=== PATIENT | male | born 1980 | race Hispanic/Latino ===

== ENCOUNTER 2018-11-08 16:50 | Emergency (ER) | payer SELFPAY | END 2018-11-08 17:53 | disposition home or self-care (01) | LOC: ERS 16:50 | DX: K02.9 Dental caries, unspecified (principal); F17.210 Nicotine dependence, cigarettes, uncomplicated | CPT/HCPCS: 99283 ==

== ENCOUNTER 2019-03-18 15:44 | Observation (INO) | payer SELFPAY ==
[~2019-03-18 15:44] MED LIST: Iopamidol 370 76% 100 ML VIAL ONE
--- NOTE | 2019-03-18 17:05 | RAD ---
EXAM: Single view of the chest HISTORY: Chest pain COMPARISON: 10/17/2012 FINDINGS: Single view of the chest shows a normal sized cardiomediastinal silhouette. Dextrocardia i s present. The patient is status post sternotomy. There is no evidence of consolidation, mass, or pleural effusion. The bones are unremarkable. IMPRESSION: Dextrocardia without evidence of acute cardiopulmonary disease
[2019-03-18 19:05] LABS: #Basophils 0.1 thou/uL (0.0-0.2); #Eosinphils 0.1 thou/uL (0.0-0.7); #Lymphocytes 3.1 thou/uL (1.20-3.40); #Monocytes 0.7 thou/uL (0.11-0.59); #Neutrophils 5.4 thou/uL (1.40-6.50); %Basophils 1.5 % (0.0-1.0); %Eosinophils 1.2 % (0.0-10.0); %Monocytes 7.3 % (0.0-10.0); %Neutrophils 57.1 % (42.0-75.0); Hemoglobin 16.8 g/dL (14.0-18.0); Mean Corpuscular HGB CONC 34.3 g/dL (32.0-36.0); Mean Corpuscular Volume 90.5 fL (78.0-98.0); Mean Platelet Volume 8.9 fL (7.4-10.4); Platelet Count 246 thou/uL (130-400); RBC Distribution Width 11.8 % (11.5-14.5); Red Blood Cell (RBC) Count 5.42 mill/uL (4.70-6.10); White Blood Cell (WBC) Count 9.4 thou/uL (4.8-10.8)
[2019-03-18] MEDS ORDERED: Nitroglycerin 2% Ointment 1 INCH/1 GM Packet ONE (19:13)
[2019-03-18 19:20] LABS: ALT (SGPT) 53 U/L (8-55); AST (SGOT) 28 U/L (5-34); Albumin 4.6 g/dL (3.5-5.0); Alkaline Phosphatase 182 U/L (40-110); Anion Gap 18 mmol/L (10-20); BUN (Urea Nitrogen) 14 mg/dL (8.9-20.6); Bilirubin, Total 0.5 mg/dL (0.2-1.2); Calc. Creatinine Clearance 0 mL/min (70-130); Carbon Dioxide 20 mmol/L (22-29); Chloride 99 mmol/L (98-107); Estimated GFR-MDRD 70; Globulin 3.1 g/dL (2.4-3.5); Glucose 477 mg/dL (70-105); Potassium 4.6 mmol/L (3.5-5.1); Protein, Total 7.7 g/dL (6.0-8.3); Sodium 132 mmol/L (136-145)
[2019-03-18] MEDS ORDERED: Aspirin 325 MG TAB ONE (20:28)
--- NOTE | 2019-03-18 21:08 | CT ---
EXAM: CTA of the chest and abdomen HISTORY: Left neck and shoulder pain for one month. The left upper extremity paresthesias and burning for 2 days COMPARISON: None TECHNIQUE: Multiple contiguous axial images were obtained a CTA of the chest and abdomen with contras t per aortic dissection protocol. Sagittal and coronal 3-D MIP reformats were performed. FINDINGS: HEART: Dextrocardia associated with situs inversus. PULMONARY ARTERIES: Normal in caliber without filling defects to suggest pulmonary emboli. MEDIASTINUM: No hilar or mediastinal lymphadenopathy. LUNGS: No focal infiltrates or masses. PLEURAL SPACE: No pleural effusion or pneumothorax. CHEST AND ABDOMINAL WALL SOFT TISSUES: Unremarkable Situs inversus is seen. LIVER: Unremarkable. GALLBLADDER: Unremarkable. KIDNEYS: Unremarkable. SPLEEN: Unremarkable. PANCREAS: Unremarkable. BOWEL: Unremarkable. RETROPERITONEUM: No lymphadenopathy BONES: Degenerative changes in the spine. ASCENDING THORACIC AORTA: Normal caliber without evidence of dissection or aneurysmal dilatation. DESCENDING THORACIC AORTA: Normal caliber without evidence of dissection or aneurysmal dilatation. ABDOMINAL AORTA: Normal caliber without evidence of dissection or aneurysmal dilatation. CELIAC TRUNK: Patent SMA: Patent OSCAR: Patent RENAL ARTERIES: Multiple bilateral renal arteries without significant atherosclerotic disease IMPRESSION: 1. No evidence of thoracic or abdominal aortic aneurysm or dissection 2. Situs inversus
[2019-03-18] MEDS ORDERED: Senokot S 8.6-50 MG TAB PO PRN (21:31)
[2019-03-18] MEDS ORDERED: Acetaminophen 325 MG TAB PO PRN (21:31)
[2019-03-18] MEDS ORDERED: Dextrose 50% Abboject 50 ML SYRINGE SLOW IVP PRN (21:38)
[2019-03-18] MEDS ORDERED: Dextrose 5% in Water 1,000 ML IV PRN (21:38)
[2019-03-18] MEDS ORDERED: HumaLOG 300 UNITS/3 ML VIAL SC PRN ×2 (21:38)
[2019-03-18] MEDS ORDERED: Sodium Chloride 0.9% 1,000 ML IV SCH (21:45)
[2019-03-18] MEDS ORDERED: Nicotine 14 MG PATCH TD SCH (22:00)
[2019-03-18] MEDS ORDERED: hydrALAZINE 20 MG/ML VIAL SLOW IVP PRN (22:12)
[2019-03-18 22:39] VITALS: BMI 23.5
[2019-03-18 22:53] LABS: Troponin I 0.019 ng/mL (< 0.028)
[2019-03-18] MEDS ORDERED: Ondansetron ODT 4 MG TAB SL PRN (22:53)
[2019-03-18] MEDS ORDERED: Ondansetron PF 4 MG/2 ML Vial IVP PRN (22:53)
--- NOTE | 2019-03-18 23:28 | HP ---
CHIEF COMPLAINT: Left arm pain. HISTORY OF PRESENT ILLNESS: Mr. Hodges is a 38-year-old man, who reported to the emergency room today for evaluation of left arm pain x1 month. Reports that it started in his neck a months ago and radiates down his left arm. Reports that yesterday it started to radiate down the left side of his chest. 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 Denies any injury or trauma. Reports that Motrin makes it feel bit better but short-lived and hence denies trying anything more than that. Sees Dr. Theodore, but not on a regular basis. Reports that he takes metformin and was told to take long-acting insulin with that, but reports that it drops his blood sugar too low, makes him to feel terrible, and he quit taking it. EKG shows marked bradycardia at 44 beats per minute, possible anterolateral ischemia, and dextrocardia. Initial troponin was negative. CT dissection protocol was also done while in the emergency room, and this was negative for any acute findings. He was admitted for risk stratification. REVIEW OF SYSTEMS: Reports left-sided neck pain lateral that radiates down left arm. Yesterday, it started to radiate down left side of chest. Denies any specific chest pain, palpitations, nausea, diaphoresis. 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 The patient reports he is positive for Hep C. PAST SURGICAL HISTORY: Cardiac surgery to fix the vessel transposition. PSYCHIATRIC HISTORY: None. SOCIAL HISTORY: Lives at home with his family. Denies drug use. Smokes a pack of cigarettes a day. ALLERGIES: NONE. CURRENT MEDICATIONS: Per the ER, 1. Metformin 500 mg p.o. twice a day. 2. Long-acting insulin, it is not sure which one 20 units subcu once a day. PHYSICAL EXAMINATION: VITAL SIGNS: Blood pressure 139/80, pulse is 49, respirations are 19, PO2 sats are 98, O2 sats are 96% on room air. CONSTITUTIONAL: The patient is alert and oriented to person, place, and time. HEENT: Head is atraumatic and normocephalic. Eyes; eyelids are normal to inspection. Pupils are equal, round, and reactive to light. ENT, mouth exam is normal. Mucous membranes are moist. NECK: Normal range of motion. Trachea is midline. There is tenderness to palpation to the left lateral side that radiates down to the trapezius. RESPIRATORY/CHEST: Breath sounds are clear. Chest movement is symmetrical. ABDOMEN: Nontender. Bowel sounds are heard. BACK: Normal range of motion. No CVA tenderness. EXTREMITIES: Upper extremity, motor strength is normal. Range of motion diminished due to pain. Radial pulses are normal. Lower extremity, normal range of motion. Motor strength is normal. Pedal pulses are normal. No edema is noted. NEURO: The patient is oriented to person, place, and time. Speech is normal. SKIN: Warm, dry, normal in color. PLAN/ASSESSMENT: 1. Pain that starts in his neck and radiates down to his chest due to dextrocardia and transposition of the vessels. We will trend troponins. Order a stress test in the a.m. The fact that pain starts in his neck, and there is tenderness to the touch. Further testing of his neck may be warranted if the stress test is normal. We will order a UA and drug screen. We will check lipids and TSH. 2. Neck pain. See above. We will also order OT evaluation. 3. Diabetes mellitus, poorly controlled. The patient reports he takes metformin 500 mg b.i.d. Current blood sugars 477. Order some fluids, sliding scale insulin. 4. Hypertension in the ER. The patient reports that he was once diagnosed with that, but was taken off his medications. We will add p.r.n. medications, if it consistently remains high, may start patient on the low dose of hypertensive medications to continue as an outpatient. 5. Deep venous thrombosis and gastrointestinal prophylaxis have been started. 6. Smoking cessation counseling has been given. 7. Hospital course is dependent on clinical findings. Job ID: [id number]
[2019-03-19 01:32] LABS: Troponin I Less than 0.010 ng/mL (< 0.028)
[2019-03-19] MEDS ORDERED: Ketorolac Tromethamine 30 MG/ML VIAL IVP SCH (02:00)
[2019-03-19 02:26] LABS: Bacteria/HPF None Seen HPF (None Seen); Bilirubin Negative (Negative); Blood, Urine Negative (Negative); Clarity Clear (Clear); Glucose, Urine (Dipstick) Greater than 1000 mg/dL (Negative); Leukocyte Negative Leu/uL (Negative); Nitrite Negative (Negative); Protein, Urine (Dipstick) 30 mg/dL (Neg-Trace); RBC/HPF 0-3 HPF (0-3); Squamous Epithelial 0-3 HPF (0-3); Urobilinogen Normal mg/dL (Less than 2); WBC/HPF 0-3 HPF (0-3)
[2019-03-19 02:30] LABS: Urine Culture Reflex No No
[2019-03-19 02:43] LABS: Amphetamine Not Detected (NotDetected); Barbiturates Screen Not Detected (NotDetected); Benzodiazepine Screen Not Detected (NotDetected); Cocaine Metabolite Screen Not Detected (NotDetected); Medtox Control Line Valid? VALID (VALID); Medtox Reader # READER 1; Methadone Not Detected (NotDetected); Methamphetamine Not Detected (NotDetected); Opiate Screen Not Detected (NotDetected); Oxycodone Screen Not Detected (NotDetected); Phencyclidine (PCP) Not Detected (NotDetected); THC/Cannabinoid Screen Detected (NotDetected); Tricyclic Screen Not Detected (NotDetected)
[2019-03-19] MEDS ORDERED: traMADol HCl 50 MG TAB PO SCH (05:00)
[2019-03-19 06:17] LABS: #Basophils 0.1 thou/uL (0.0-0.2); #Eosinphils 0.2 thou/uL (0.0-0.7); #Lymphocytes 3.6 thou/uL (1.20-3.40); #Monocytes 0.7 thou/uL (0.11-0.59); #Neutrophils 4.2 thou/uL (1.40-6.50); %Basophils 1.1 % (0.0-1.0); %Lymphocytes 41.2 % (21.0-51.0); %Monocytes 7.6 % (0.0-10.0); %Neutrophils 48.1 % (42.0-75.0); Hemoglobin 15.8 g/dL (14.0-18.0); Mean Corpuscular Hemoglobin 30.1 pg (27.0-31.0); Mean Corpuscular Volume 91.3 fL (78.0-98.0); Mean Platelet Volume 8.7 fL (7.4-10.4); Platelet Count 230 thou/uL (130-400); RBC Distribution Width 11.8 % (11.5-14.5); Red Blood Cell (RBC) Count 5.24 mill/uL (4.70-6.10); White Blood Cell (WBC) Count 8.6 thou/uL (4.8-10.8)
[2019-03-19 06:46] LABS: Anion Gap 13 mmol/L (10-20); BUN (Urea Nitrogen) 17 mg/dL (8.9-20.6); Calc. Creatinine Clearance 92 mL/min (70-130); Calcium 9.4 mg/dL (7.8-10.44); Carbon Dioxide 26 mmol/L (22-29); Cardiac Risk 4.8 (Less than 4.5); Chloride 103 mmol/L (98-107); Cholesterol 257 mg/dl (< 200 Desired); Estimated GFR-MDRD 83; Glucose 268 mg/dL (70-105); HDL Cholesterol 53 mg/dL (>60 Neg Risk); LDL Cholesterol, Calculated 177 mg/dL; Potassium 4.5 mmol/L (3.5-5.1); Sodium 137 mmol/L (136-145); Triglycerides 136 mg/dL (Less than 150)
[2019-03-19] MEDS ORDERED: Ketorolac Tromethamine 30 MG/ML VIAL IVP PRN (07:45)
[2019-03-19] MEDS ORDERED: Enoxaparin Sodium 40 MG/0.4 ML SYRINGE SC SCH (09:00)
[2019-03-19] MEDS ORDERED: Famotidine 20 MG TAB PO SCH (09:00)
--- NOTE | 2019-03-19 09:41 | PDOC.HOSPP ---
- Subjective Encounter Date: 03/19/19 Encounter Time: 09:39 Subjective: pain L neck into L arm, with paresthesia - Objective Vital Signs & Weight: Vital Signs (12 hours) Temp Pulse Resp BP BP Pulse Ox 03/19/19 07:46 97.6 F 64 14 179/89 H 96 03/19/19 05:02 97.6 F 42 L 18 159/78 H 98 03/18/19 22:50 50 L 169/93 H 03/18/19 22:35 97.8 F 51 L 20 191/99 H 98 Weight Weight 145 lb 15.136 oz I&O: 03/18/19 03/19/19 03/20/19 06:59 06:59 06:59 Intake Total 350 995 Balance 350 995 Result Diagrams: 03/19/19 05:29 03/19/19 05:29 Additional Labs: Accuchecks 03/18/19 22:28 POC Glucose 306 H Hospitalist ROS - Medication Medications: Active Medications Generic Name Dose Route Start Last Admin Trade Name Freq PRN Reason Stop Dose Admin Acetaminophen 650 mg 03/18/19 21:31 03/18/19 23:21 Tylenol PO 650 mg Q4H PRN Administration Headache/Fever/Mild Pain (1-3) Insulin Human Lispro 0 units 03/18/19 21:38 03/18/19 23:22 Humalog SC 4 unit .BEDTIME SLIDING SC PRN Administration Bedtime Correctional Scale Nicotine 14 mg 03/18/19 22:00 03/18/19 23:22 Nicoderm Patch TD Not Given Q24HR DEEPTHI - Exam Neck: no JVD Heart: RRR, no murmur Respiratory: CTAB Gastrointestinal: soft Extremities: no edema Hosp A/P (1) Cervical radiculopathy at C7 Code(s): M54.12 - RADICULOPATHY, CERVICAL REGION Status: Acute (2) DM type 2 (diabetes mellitus, type 2) Status: Chronic Qualifiers: Diabetes mellitus long-term insulin use: without long-term use Diabetes mellitus complication status: without complication Qualified Code(s): E11.9 - Type 2 diabetes mellitus without complications (3) HTN (hypertension) Code(s): I10 - ESSENTIAL (PRIMARY) HYPERTENSION Status: Chronic Qualifiers: Hypertension type: essential hypertension Qualified Code(s): I10 - Essential (primary) hypertension (4) Situs inversus Code(s): Q89.3 - SITUS INVERSUS Status: Chronic - Plan MRI c spine
[2019-03-19] MEDS ORDERED: traMADol HCl 50 MG TAB PO PRN (11:00)
--- NOTE | 2019-03-19 11:07 | MRI ---
EXAM: Cervical spine MRI Without contrast. HISTORY: Left cervical radiculopathy COMPARISON: None. FINDINGS: Multiplanar multisequence MRI examination of the cervical spine is performed. Very severe motion artifact. The patient refused any additional imaging. Generalized disc desiccation change. No significant malalignment. No evidence for significant abnormal marrow signal. No evidence for spinal cord mass or abnormal signal within the spinal cord. Visualized lower brain and neck soft tissues show no significant acute process. C2-C3 level: No significant central canal, lateral recess, or foraminal stenosis. C3-C4 level: No significant central canal, lateral recess, or foraminal stenosis. C4-C5 level: Mild focal central protrusion with minimal indention of the ventral thecal sac C5-C6 level: Prominent disc osteophytosis with a large central disc osteophyte complex resulting in s ignificant central canal stenosis and bilateral recess stenosis and some foraminal stenosis worse on the left side. C6-C7 level: No significant central canal, lateral recess, or foraminal stenosis. C7-T1 level: No significant central canal, lateral recess, or foraminal stenosis. IMPRESSION: Very severely limited study because of patient motion and patient would not allow any additional imag ing. Large central disc osteophyte at C5-C6 with thecal sac compression and ventral lateral recess stenosis and primarily left foraminal stenosis. If there is consideration for surgical evaluation a follow-up outpatient examination when the patient can be premedicated might be a consideration
--- NOTE | 2019-03-19 15:28 | DIS ---
DATE OF ADMISSION: 03/18/2019 DATE OF DISCHARGE: 03/19/2019 PRIMARY CARE PROVIDER: Laura Smart DNP, NEWS VIDEO EDITOR- DISPOSITION: Discharged home. FINAL DIAGNOSES: 1. C7 cervical radiculopathy. 2. Diabetes mellitus, type 2. 3. Hypertension. 4. Situs inversus. DISCHARGE MEDICINES: New; 1. Medrol Dosepak start today. 2. Tylenol No. 3 one or two tablets every 6 hours p.r.n. pain. 3. Metformin 500 mg p.o. b.i.d. ALLERGIES: NO KNOWN DRUG ALLERGIES. DIET: Diabetic. PENDING AT TIME OF DISCHARGE: Nothing. CODE STATUS: Full. HOSPITAL COURSE: The patient admitted to the hospital with a diagnosis of left arm pain, rule out IA. The patient has situs inversus. His initial laboratory, CBCs unremarkable. He did have an elevated blood sugar of 268. His chemistries were unremarkable. Cardiac enzymes were normal. On history and physical exam, his symptoms and exam were consistent with a left C7 cervical radiculopathy. He had weakness in the left triceps. MRI confirmed neuroforaminal stenosis. He is being discharged to follow up with his PCP in 7 days. If this does not resolve rapidly, he will need to be seen by Neurosurgery. His MRI was limited by movement artifact. He may possibly need pain medicines and/or sedation if he requires a second one. Job ID: [id number]
[2019-03-19 16:29] VITALS: BP 142/87; TEMP 97.4
[2019-03-19] MEDS ORDERED: FLU VACC QS2019-20(6MOS UP)/PF 60 MCG/0.5 ML SYRINGE IM ONE (21:00)
== END 2019-03-19 16:47 | disposition home or self-care (01) ==
LOC: ERS 15:44 → 2SW 21:57
PROVIDERS: ADMIT Internal Medicine; ATTEND Internal Medicine
DX: M54.12 Radiculopathy, cervical region (principal); R07.9 Chest pain, unspecified; M48.02 Spinal stenosis, cervical region; M25.78 Osteophyte, vertebrae; E11.9 Type 2 diabetes mellitus without complications; F17.210 Nicotine dependence, cigarettes, uncomplicated; I10 Essential (primary) hypertension; Q89.3 Situs inversus; Z79.4 Long term (current) use of insulin; Z98.890 Other specified postprocedural states
CPT/HCPCS: 36415; 36416; 71045; 71275; 72141; 72191; 74175; 80048; 80053; 80061; 80306; 81001; 84443; 84484; 85025; 90471; 90686; 90732; 93005; 96361; 96374; G0008; G0009; G0378; J1885; Q9967

== ENCOUNTER 2021-02-09 05:12 | Emergency (ER) | payer SELFPAY ==
[2021-02-09 08:45] LABS: #Lymphocytes 1.5 thou/uL (1.20-3.40); #Monocytes 0.7 thou/uL (0.11-0.59); #Neutrophils 11.5 thou/uL (1.40-6.50); %Basophils 0.1 % (0.0-1.0); %Eosinophils 0.3 % (0.0-10.0); %Lymphocytes 10.7 % (21.0-51.0); %Monocytes 4.8 % (0.0-10.0); %Neutrophils 84.1 % (42.0-75.0); Hemoglobin 17.1 g/dL (14.0-18.0); Mean Corpuscular HGB CONC 32.1 g/dL (32.0-36.0); Mean Corpuscular Hemoglobin 29.2 pg (27.0-31.0); Mean Platelet Volume 9.1 fL (7.4-10.4); Platelet Count 337 thou/uL (130-400); RBC Distribution Width 11.3 % (11.5-14.5); Red Blood Cell (RBC) Count 5.85 mill/uL (4.70-6.10); White Blood Cell (WBC) Count 13.7 thou/uL (4.8-10.8)
[2021-02-09 09:00] LABS: ALT (SGPT) 36 U/L (8-55); AST (SGOT) 30 U/L (5-34); Albumin 3.8 g/dL (3.5-5.0); Alkaline Phosphatase 305 U/L (40-110); Anion Gap 18 mmol/L (10-20); BUN (Urea Nitrogen) 17 mg/dL (8.9-20.6); Bilirubin, Total 0.6 mg/dL (0.2-1.2); Calc. Creatinine Clearance 0 mL/min (70-130); Carbon Dioxide 23 mmol/L (22-29); Chloride 92 mmol/L (98-107); Globulin 3.6 g/dL (2.4-3.5); Potassium 4.8 mmol/L (3.5-5.1); Protein, Total 7.4 g/dL (6.0-8.3); Sodium 128 mmol/L (136-145)
[2021-02-09 09:18] LABS: Glucose 780 mg/dL (70-105)
[2021-02-09] MEDS ORDERED: Magnesium 2 GM/50 ML BAG (IN WATER) ONE (10:15)
[2021-02-09] MEDS ORDERED: Metoclopramide HCl 10 MG/2 ML VIAL ONE (10:15)
[2021-02-09] MEDS ORDERED: diphenhydrAMINE 50 MG/ML VIAL ONE (10:15)
[2021-02-09 10:37] LABS: Actual Bicarbonate (HCO3v) 26 mEq/L (22-28); Chloride (VBG) 92 mmol/L (98-106); Hemoglobin (Hb) 16.8 g/dL (13.2-17.3); Potassium (VBG) 4.19 mmol/L (3.70-5.30); Sodium 130.6 mmol/L (133-146); pH (venous) 7.42 (7.32-7.43)
[2021-02-09] MEDS ORDERED: Acetaminophen 500 MG TAB ONE (12:39)
[2021-02-09] MEDS ORDERED: methylPREDNISolone Sod Succ/PF 125 MG/2 ML VIAL ONE (12:40)
[2021-02-09] MEDS ORDERED: Ketorolac Tromethamine 30 MG/ML VIAL ONE (12:40)
[2021-02-09] MEDS ORDERED: Insulin Regular 300 UNITS/3 ML VIAL ONE (12:40)
== END 2021-02-09 14:57 | disposition home or self-care (01) ==
LOC: ERS 05:12
DX: R51.9 Headache, unspecified (principal); E11.65 Type 2 diabetes mellitus with hyperglycemia; F17.210 Nicotine dependence, cigarettes, uncomplicated; I10 Essential (primary) hypertension
CPT/HCPCS: 36415; 36416; 70450; 80053; 82010; 82805; 85025; 93005; 96365; 96366; 96368; 96375; J1200; J1815; J1885; J2765; J2930; J3475

== ENCOUNTER 2023-07-04 08:36 | Inpatient (IN) | payer OTHER ==
[2023-07-04 09:15] LABS: #Basophils 0.1 thou/uL (0.0-0.2); #Monocytes 0.7 thou/uL (0.11-0.59); #Neutrophils 6.9 thou/uL (1.40-6.50); %Basophils 0.7 % (0.0-1.0); %Eosinophils 0.5 % (0.0-10.0); %Monocytes 7.8 % (0.0-10.0); %Neutrophils 77.7 % (42.0-75.0); Hematocrit 44.7 % (42.0-52.0); Hemoglobin 14.5 g/dL (14.0-18.0); Mean Corpuscular HGB CONC 32.4 g/dL (32.0-36.0); Mean Corpuscular Hemoglobin 29.1 pg (27.0-31.0); Mean Corpuscular Volume 89.8 fl (78.0-98.0); Mean Platelet Volume 10.8 fL (7.4-10.4); Platelet Count 281 10x3/uL (130-400); RBC Distribution Width 12.2 % (11.5-14.5); Red Blood Cell (RBC) Count 4.98 mill/uL (4.70-6.10); White Blood Cell (WBC) Count 8.9 10x3/uL (4.8-10.8)
[2023-07-04 09:33] LABS: ALT (SGPT) 59 U/L (8-55); AST (SGOT) 39 U/L (5-34); Albumin 3.8 g/dL (3.5-5.0); Alkaline Phosphatase 361 U/L (40-110); Anion Gap 16 mmol/L (10-20); BUN (Urea Nitrogen) 23 mg/dL (8.9-20.6); Bilirubin, Total 1.1 mg/dL (0.2-1.2); CK (CPK) 209 U/L (30-200); Calc. Creatinine Clearance 0 mL/min (70-130); Calcium 9.3 mg/dL (7.8-10.44); Carbon Dioxide 24 mmol/L (22-29); Chloride 95 mmol/L (98-107); Estimated GFR 63; Globulin 4.2 g/dL (2.4-3.5); Potassium 4.9 mmol/L (3.5-5.1); Sodium 130 mmol/L (136-145)
[2023-07-04 09:36] LABS: Troponin I 0.062 ng/mL (< 0.028)
[2023-07-04 09:38] LABS: Critical Call Chemistry NUR.OR15 @ 0937; Glucose 525 mg/dL (70-105)
[2023-07-04] MEDS ORDERED: Acetaminophen 325 MG TAB PO PRN (10:12)
[2023-07-04] MEDS ORDERED: Ondansetron ODT 4 MG TAB PO PRN (10:12)
[2023-07-04] MEDS ORDERED: Ondansetron PF 4 MG/2 ML Vial IVP PRN (10:12)
[2023-07-04] MEDS ORDERED: Acetaminophen 650 MG Suppository PR PRN (10:12)
[2023-07-04] MEDS ORDERED: Insulin Regular 300 UNITS/3 ML VIAL SC PRN ×2 (10:41)
[2023-07-04] MEDS ORDERED: Glucagon 1 MG/ML KIT IM PRN (10:41)
[2023-07-04] MEDS ORDERED: Dextrose 5% in Water 1,000 ML IV PRN (10:41)
[2023-07-04] MEDS ORDERED: Dextrose 50% Abboject 50 ML SYRINGE SLOW IVP PRN (10:41)
[2023-07-04 11:13] LABS: Bacteria/HPF None Seen HPF (None Seen); Bilirubin Negative (Negative); Blood, Urine Trace (Negative); CAUTI Indications for Culture Dysuria,urgency,freq; Clarity Clear (Clear); Glucose, Urine (Dipstick) Greater than 1000 mg/dL (Negative); Ketone, Urine Trace mg/dL (Negative); Leukocyte Negative Leu/uL (Negative); Nitrite Negative (Negative); Protein, Urine (Dipstick) 50 mg/dL (Neg-Trace); RBC/HPF 0-3 HPF (0-3); Specific Gravity, Urine 1.032 (1.002-1.036); Squamous Epithelial 0-3 HPF (0-3); Urobilinogen Normal mg/dL (Less than 2); WBC/HPF 0-3 HPF (0-3)
[2023-07-04 11:15] LABS: Urine Culture Reflex No No
[2023-07-04] MEDS ORDERED: VANCOMYCIN IVPB PRN (11:17)
[2023-07-04] MEDS: Insulin Glargine 30 UNITS/0.3 ML VIAL SC SCH ×2 (11:52→20:00)
[2023-07-04] MEDS: Vancomycin (BATCH) 1.25 GM in Premix 1 BAG IVPB SCH (12:13)
[2023-07-04 13:09] VITALS: BP 135/85
[2023-07-04] MEDS: Furosemide 100 MG (10 mL) VIAL SLOW IVP SCH (15:43)
[2023-07-04 18:57] VITALS: BMI 24.7
[2023-07-04] MEDS: Famotidine 20 MG TAB PO SCH (20:01)
[2023-07-04] MEDS ORDERED: Vancomycin 1 GM in Sodium Chloride 0.9% 250 ML 250 ML IVPB SCH (21:00)
[2023-07-04 21:34] VITALS: TEMP 97.8
[2023-07-05] MEDS ORDERED: Enoxaparin 40 MG (0.4 mL) SYRINGE SC SCH (09:00)
== END 2023-07-04 21:20 | disposition short-term general hospital (02) | DRG 291 ==
LOC: ERS 08:36 → ERHOLD 10:20 → IMCU/EMU 15:43
PROVIDERS: ADMIT Internal Medicine; ATTEND Physician Assistant
PROC: 5A09357 Assistance with Respiratory Ventilation, Less than 24 Consecutive Hours, Continuous Positive Airway Pressure (ICD-10-PCS; principal; 2023-07-04)
DX: I11.0 Hypertensive heart disease with heart failure (principal); I50.23 Acute on chronic systolic (congestive) heart failure; J96.01 Acute respiratory failure with hypoxia; L03.115 Cellulitis of right lower limb; Z79.4 Long term (current) use of insulin; F17.210 Nicotine dependence, cigarettes, uncomplicated; E11.42 Type 2 diabetes mellitus with diabetic polyneuropathy; R74.01 Elevation of levels of liver transaminase levels; E11.65 Type 2 diabetes mellitus with hyperglycemia; I42.9 Cardiomyopathy, unspecified; F19.10 Other psychoactive substance abuse, uncomplicated
CPT/HCPCS: 36415; 36416; 71045; 80053; 81001; 82550; 83880; 84484; 85025; 87040; 93005; 94660; 96374; 96375; J1815; J1940; J3370

== ENCOUNTER 2024-05-09 13:51 | Emergency (ER) | payer OTHER ==
[2024-05-09 14:48] LABS: Hematocrit 40.4 % (42.0-52.0); Hemoglobin 13.5 g/dL (14.0-18.0); Mean Corpuscular HGB CONC 33.4 g/dL (32.0-36.0); Mean Corpuscular Hemoglobin 29.4 pg (27.0-31.0); Mean Platelet Volume 10.2 fL (7.4-10.4); Platelet Count 345 10x3/uL (130-400); RBC Distribution Width 12.4 % (11.5-14.5); Red Blood Cell (RBC) Count 4.59 mill/uL (4.70-6.10)
[2024-05-09 15:07] LABS: ALT (SGPT) 15 U/L (8-55); AST (SGOT) 14 U/L (5-34); Albumin 2.1 g/dL (3.5-5.0); Alkaline Phosphatase 313 U/L (40-110); Anion Gap 22 mmol/L (10-20); BUN (Urea Nitrogen) 15 mg/dL (8.9-20.6); Bilirubin, Total 0.5 mg/dL (0.2-1.2); Calc. Creatinine Clearance 0 mL/min (70-130); Calcium 8.7 mg/dL (7.8-10.44); Carbon Dioxide 20 mmol/L (22-29); Chloride 93 mmol/L (98-107); Estimated GFR 103; Globulin 5.2 g/dL (2.4-3.5); Glucose 441 mg/dL (70-105); Potassium 4.6 mmol/L (3.5-5.1); Protein, Total 7.3 g/dL (6.0-8.3); Sodium 130 mmol/L (136-145)
[2024-05-09 15:17] LABS: Prothrombin Time 12.6 sec (12.0-14.7)
[2024-05-09 15:18] LABS: PTT 29.2 sec (22.9-36.1)
[2024-05-09 15:22] LABS: Anisocytosis SLIGHT = 6-15 cells HPF (0-5); Band 8 % (5-11); Burr Cells MODERATE= 6-15 cells HPF (0-1); Lymphocytes 4 % (21-51); Macrocytosis SLIGHT = 6-15 cells HPF (0-5); Microcytosis SLIGHT = 6-15 cells HPF (0-5); Monocytes 3 % (0-10); Neutrophil 84 % (42-75); Platelet Adequacy Comment Platelets Normal; Poikilocytosis SLIGHT = 6-15 cells HPF (0-5); Polychromasia SLIGHT = 2-3 cells HPF (0-2)
[2024-05-09] MEDS ORDERED: Vancomycin (BATCH) 1.5 GM in Premix 1 BAG IVPB SCH (17:15)
[2024-05-09] MEDS ORDERED: Cefepime 2 GM VIAL ONE (18:14)
[2024-05-09] MEDS ORDERED: Sodium Chloride 0.9% 100 ML ONE (18:15)
[2024-05-09] MEDS ORDERED: Insulin Regular, Human 100 UNIT/ML 10 ML VIAL ONE (18:15)
[2024-05-09] MEDS ORDERED: Morphine 2 MG/ML VIAL ONE (20:20)
== END 2024-05-10 04:54 | disposition short-term general hospital (02) ==
LOC: ERS 13:51
DX: E11.621 Type 2 diabetes mellitus with foot ulcer (principal); L97.529 Non-pressure chronic ulcer of other part of left foot with unspecified severity; F17.210 Nicotine dependence, cigarettes, uncomplicated; Z79.4 Long term (current) use of insulin
CPT/HCPCS: 36415; 36416; 80053; 83605; 85025; 85610; 85730; 87040; 87077; 87149; 93005; 96365; 96375; J0692; J1815; J2272; J3370

== ENCOUNTER 2024-05-27 19:36 | Inpatient (IN) | payer OTHER ==
[2024-05-27 20:09] LABS: #Basophils 0.04 10x3/uL (0.0-0.2); #Eosinophils Less than 0.03 10x3/uL (0.0-0.7); %Basophils 0.3 % (0.0-1.0); %Lymphocytes 8.3 % (21.0-51.0); %Monocytes 12.5 % (0.0-10.0); %Neutrophils 78.5 % (42.0-75.0); Hematocrit 23.2 % (42.0-52.0); Hemoglobin 7.5 g/dL (14.0-18.0); Mean Corpuscular HGB CONC 32.3 g/dL (32.0-36.0); Mean Corpuscular Volume 89.6 fL (78.0-98.0); Mean Platelet Volume 9.7 fL (7.4-10.4); Platelet Count 237 10x3/uL (130-400); RBC Distribution Width 12.5 % (11.5-14.5); Red Blood Cell (RBC) Count 2.59 mill/uL (4.70-6.10)
[2024-05-27 20:22] LABS: Actual Bicarbonate (HCO3v) 17.6 mEq/L (22-28); Analyzer IN Cardio ER; Base Excess -7.6 mEq/L (-2.0 to +3.0); Calcium, Ionized (venous) 1.08 mmol/L (1.16-1.32); Chloride (VBG) 102 mmol/L (98-106); Hematocrit-VBG 18 % (42.0-52.0); Potassium (VBG) 4.77 mmol/L (3.70-5.30); Sodium 140 mmol/L (133-146); pH (venous) 7.329 (7.32-7.43)
[2024-05-27 20:28] LABS: Acetaminophen Less than 10 mcg/mL (Less than 10); Alcohol Less than 10.0 mg/dL (Less than 10); Lipase 25 U/L (8-78); Magnesium 1.9 mg/dL (1.6-2.6); Salicylate Less than 8.0 mg/dL (Less than 8.0)
[2024-05-27 20:30] LABS: Troponin I 0.057 ng/mL (< 0.028)
[2024-05-27 20:31] LABS: ALT (SGPT) 39 U/L (8-55); AST (SGOT) 47 U/L (5-34); Albumin 2.6 g/dL (3.5-5.0); Alkaline Phosphatase 459 U/L (40-110); Anion Gap 28 mmol/L (10-20); BUN (Urea Nitrogen) 35 mg/dL (8.9-20.6); Bilirubin, Total 0.5 mg/dL (0.2-1.2); CK (CPK) 290 U/L (30-200); Calc. Creatinine Clearance 0 mL/min (70-130); Calcium 8.7 mg/dL (7.8-10.44); Carbon Dioxide 16 mmol/L (22-29); Chloride 103 mmol/L (98-107); Estimated GFR 51; Glucose 236 mg/dL (70-105); Potassium 5.1 mmol/L (3.5-5.1); Protein, Total 7.6 g/dL (6.0-8.3); Sodium 142 mmol/L (136-145)
[2024-05-27] MEDS ORDERED: KETAMINE 100 MG/ML (5ML VIAL) ONE (23:31)
[2024-05-27] MEDS ORDERED: Rocuronium Bromide 10 MG/ML (10ML VIAL) ONE ×2 (23:32)
[2024-05-27 23:50] LABS: Analyzer IN Cardio ER; Base Excess (BEa) -11.6 mEq/L (-2.0 to +3.0); CO2 Tension 25.3 mmHg (35.0-45.0); Calcium, Ionized (arterial) 1.16 mmol/L (1.12-1.30); Carboxyhemoglobin (COHb) 1.3 gm% (0.0-3.0); Hematocrit-ABG 21 % (42.0-52.0); Hemoglobin (Hb) 7.1 g/dL (14.0-18.0); O2 Tension (PaO2), arterial 259.9 mmHg (80.0-100.0); Potassium - ABG Lab 4.78 mmol/L (3.70-5.30); pH, Arterial 7.333 (7.35-7.45)
[2024-05-27 23:52] LABS: ALV-art Gradient 421.475 mmHg (0-20); Actual Bicarbonate (HCO3a) 13.1 mEq/L (22-28); Puncture Site Right Radial artery
[2024-05-28 00:09] LABS: Lactic Acid 12.88 mmol/L (0.5-2.2)
[2024-05-28 00:16] LABS: Bacteria/HPF None Seen HPF (None Seen); Bilirubin Negative (Negative); Blood, Urine Negative (Negative); CAUTI Indications for Culture Alt mental st,lethar; Clarity Clear (Clear); Glucose, Urine (Dipstick) Greater than 1000 mg/dL (Negative); Ketone, Urine Negative (Negative); Leukocyte Negative Leu/uL (Negative); Nitrite Negative (Negative); Protein, Urine (Dipstick) 70 mg/dL (Neg-Trace); RBC/HPF 0-3 HPF (0-3); Specific Gravity, Urine 1.027 (1.002-1.036); Squamous Epithelial 0-3 HPF (0-3); Urobilinogen Normal mg/dL (Less than 2); WBC/HPF 0-3 HPF (0-3); pH, Urine 5.5 (5.0-9.0)
[2024-05-28 00:22] LABS: Urine Culture Reflex No No
[2024-05-28] MEDS ORDERED: Sodium Bicarb 50 MEQ/50 ML Abboject 8.4% SYRINGE ONE ×2 (00:23→00:54)
[2024-05-28 00:29] LABS: Amphetamine Detected (NotDetected); Barbiturates Screen Not Detected (NotDetected); Benzodiazepine Screen Not Detected (NotDetected); Cocaine Metabolite Screen Not Detected (NotDetected); Methadone Not Detected (NotDetected); Methamphetamine Detected (NotDetected); Opiate Screen Not Detected (NotDetected); Oxycodone Screen Not Detected (NotDetected); Phencyclidine (PCP) Not Detected (NotDetected); THC/Cannabinoid Screen Not Detected (NotDetected); Tricyclic Screen Not Detected (NotDetected)
[2024-05-28] MEDS ORDERED: Acetaminophen 325 MG TAB PER TUBE PRN (00:43)
[2024-05-28] MEDS ORDERED: Ondansetron PF 4 MG/2 ML Vial IVP PRN (00:43)
[2024-05-28] MEDS ORDERED: Insulin Lispro 100 UNIT/ML 10 ML VIAL SC PRN (01:01)
[2024-05-28] MEDS ORDERED: Glucagon 1 MG/ML KIT IM PRN (01:01)
[2024-05-28] MEDS ORDERED: Dextrose 5% in Water 1,000 ML IV PRN (01:01)
[2024-05-28] MEDS ORDERED: Propofol 1,000 MG/100 ML VIAL IV ONE (01:57)
[2024-05-28] MEDS: Vancomycin 1.5 GRAM/300 ML BAG 1.5 GM in Premix 1 BAG IVPB SCH (03:14)
[2024-05-28] MEDS: Albumin 25% 25 GM (100 mL) BOT IVPB SCH (03:35)
[2024-05-28] MEDS: Pantoprazole 40 MG VIAL IVP SCH ×2 (03:53→09:38)
[2024-05-28 04:19] VITALS: BMI 19.6
[2024-05-28] MEDS: Sodium Bicarbonate 150 MEQ in Sterile Water 1,000 ML IV SCH (04:30)
[2024-05-28 04:33] LABS: #Basophils 0.03 10x3/uL (0.0-0.2); #Eosinophils Less than 0.03 10x3/uL (0.0-0.7); %Basophils 0.3 % (0.0-1.0); %Eosinophils 0.1 % (0.0-10.0); %Lymphocytes 9.5 % (21.0-51.0); %Monocytes 11.2 % (0.0-10.0); %Neutrophils 78.3 % (42.0-75.0); Hematocrit 19.9 % (42.0-52.0); Hemoglobin 6.7 g/dL (14.0-18.0); Mean Corpuscular HGB CONC 33.7 g/dL (32.0-36.0); Mean Corpuscular Hemoglobin 29.1 pg (27.0-31.0); Mean Corpuscular Volume 86.5 fL (78.0-98.0); Mean Platelet Volume 10.3 fL (7.4-10.4); Platelet Count 230 10x3/uL (130-400); RBC Distribution Width 12.5 % (11.5-14.5)
[2024-05-28 05:05] LABS: INR-International Normal Ratio 1.4; PTT 31.2 sec (22.9-36.1); Prothrombin Time 17.6 sec (12.0-14.7)
[2024-05-28 05:11] LABS: Iron 168 ug/dL (65-175); Iron Binding Capacity, Total 186 mcg/dL (261-462)
[2024-05-28 05:12] LABS: ALT (SGPT) 139 U/L (8-55); AST (SGOT) 219 U/L (5-34); Albumin 2.2 g/dL (3.5-5.0); Alkaline Phosphatase 409 U/L (40-110); Anion Gap 21 mmol/L (10-20); BUN (Urea Nitrogen) 39 mg/dL (8.9-20.6); Bilirubin, Total 0.4 mg/dL (0.2-1.2); Calc. Creatinine Clearance 48 mL/min (70-130); Calcium 8.3 mg/dL (7.8-10.44); Carbon Dioxide 19 mmol/L (22-29); Chloride 106 mmol/L (98-107); Estimated GFR 55; Globulin 4.6 g/dL (2.4-3.5); Glucose 261 mg/dL (70-105); Iron 169 ug/dL (65-175); Iron Binding Capacity, Total 189 mcg/dL (261-462); Magnesium 1.8 mg/dL (1.6-2.6); Potassium 4.2 mmol/L (3.5-5.1); Protein, Total 6.8 g/dL (6.0-8.3); Sodium 142 mmol/L (136-145)
[2024-05-28 05:14] LABS: CRP,High Sensitivity (Inhouse) 3.63 mg/dL (< or = 0.5)
[2024-05-28] MEDS ORDERED: DISCONTINUE PREVIOUS NARCOTIC PAIN MEDICATIONS AND BENZODIAZEPINES FS SCH (05:15)
[2024-05-28] MEDS ORDERED: Propofol BOLUS 1,000 MG/100 ML VIAL IV PRN (05:15)
[2024-05-28] MEDS ORDERED: Fentanyl BOLUS 250 ML IVPB PRN (05:15)
[2024-05-28] MEDS ORDERED: Morphine 2 MG/ML VIAL SLOW IVP PRN (05:15)
[2024-05-28 05:20] LABS: Lactic Acid 5.45 mmol/L (0.5-2.2); Troponin I 0.461 ng/mL (< 0.028)
[2024-05-28] MEDS: Ventilator Sedation Protocol 1 EACH FS ONE (06:28)
[2024-05-28] MEDS ORDERED: Pantoprazole 40 MG VIAL IVP SCH (09:00)
[2024-05-28] MEDS: Cefepime 1 GM in Sodium Chloride 0.9% 100 ML IVPB SCH (09:38)
[2024-05-28] MEDS: Insulin Glargine 30 UNITS/0.3 ML VIAL SC SCH (10:54)
[2024-05-28] MEDS: Insulin Lispro 100 UNIT/ML 10 ML VIAL SC PRN (10:55)
[2024-05-28] MEDS: Octreotide Acetate 1,250 MCG in Sodium Chloride 0.9% 250 ML 250 ML IVPB SCH (12:08)
[2024-05-28 12:43] LABS: Hemoglobin 8.6 g/dL (14.0-18.0)
[2024-05-28] MEDS: Propofol 1,000 MG/100 ML VIAL IV PRN (13:21)
[2024-05-28] MEDS: VANCOMYCIN 1.25 GM/250 ML BAG 1.25 GM in Premix 1 BAG IVPB SCH (15:00)
[2024-05-28] MEDS: Dextrose 50% Abboject 50 ML SYRINGE SLOW IVP PRN (22:18)
[2024-05-28 23:34] LABS: Anion Gap 13 mmol/L (10-20); BUN (Urea Nitrogen) 38 mg/dL (8.9-20.6); Calc. Creatinine Clearance 48 mL/min (70-130); Calcium 7.8 mg/dL (7.8-10.44); Carbon Dioxide 24 mmol/L (22-29); Chloride 109 mmol/L (98-107); Estimated GFR 55; Glucose 131 mg/dL (70-105); Potassium 2.8 mmol/L (3.5-5.1); Sodium 143 mmol/L (136-145)
[2024-05-28] MEDS: Fentanyl CADD 100 ML IV SCH (23:57)
[2024-05-29] MEDS: Potassium Bicarbonate/Cit Ac 20 MEQ TAB PER TUBE SCH (00:28)
[2024-05-29 05:36] LABS: #Basophils 0.07 10x3/uL (0.0-0.2); %Basophils 0.4 % (0.0-1.0); %Eosinophils 0.4 % (0.0-10.0); %Monocytes 10.7 % (0.0-10.0); Hematocrit 27.4 % (42.0-52.0); Hemoglobin 9.4 g/dL (14.0-18.0); Mean Corpuscular HGB CONC 34.3 g/dL (32.0-36.0); Mean Corpuscular Hemoglobin 28.7 pg (27.0-31.0); Mean Corpuscular Volume 83.8 fL (78.0-98.0); Mean Platelet Volume 10.1 fL (7.4-10.4); Platelet Count 247 10x3/uL (130-400); RBC Distribution Width 13.4 % (11.5-14.5); Red Blood Cell (RBC) Count 3.27 mill/uL (4.70-6.10)
[2024-05-29 06:23] LABS: Vancomycin, Random 25.3 ug/mL (See Comment)
[2024-05-29 06:24] LABS: ALT (SGPT) 730 U/L (8-55); AST (SGOT) 871 U/L (5-34); Albumin 1.8 g/dL (3.5-5.0); Alkaline Phosphatase 338 U/L (40-110); Anion Gap 15 mmol/L (10-20); BUN (Urea Nitrogen) 36 mg/dL (8.9-20.6); Bilirubin, Total 0.8 mg/dL (0.2-1.2); Calc. Creatinine Clearance 50 mL/min (70-130); Calcium 7.9 mg/dL (7.8-10.44); Carbon Dioxide 23 mmol/L (22-29); Chloride 107 mmol/L (98-107); Estimated GFR 54; Globulin 4.5 g/dL (2.4-3.5); Glucose 156 mg/dL (70-105); Magnesium 1.6 mg/dL (1.6-2.6); Potassium 3.4 mmol/L (3.5-5.1); Protein, Total 6.3 g/dL (6.0-8.3); Sodium 142 mmol/L (136-145)
[2024-05-29] MEDS ORDERED: Electrolyte Replacement Protocol FS PRN (10:00)
[2024-05-29] MEDS: Insulin Glargine 30 UNITS/0.3 ML VIAL SC SCH (10:12)
[2024-05-29 10:34] VITALS: BP 134/86
[2024-05-29] MEDS: Magnesium 2 GM/50 ML(in water) 2 GM in Premix 1 BAG IVPB SCH (10:48)
[2024-05-29] MEDS: Haloperidol Lactate 5 MG/ML VIAL IM SCH (10:49)
[2024-05-29] MEDS: Potassium Chloride 20 MEQ in Premix 1 BAG IVPB SCH (10:55)
[2024-05-29 11:17] LABS: HBsAg Index 0.21 S/CO (0-0.99); Hep A IgM AB NONREACTIVE (NonReactive); Hep A IgM S/CO 0.18 S/CO (0-0.79); Hep B Core IgM Index 0.05 S/CO (0-0.79); Hep B Surf Ag NONREACTIVE S/CO (NonReactive); Hep C IgG Ab Reflex HepC Qnt S/CO (NonReactive); Hep C Index 17.27 S/CO (0-0.79); Hepatitis B Core IgM Abs NONREACTIVE S/CO (NonReactive)
[2024-05-29] MEDS ORDERED: Rocuronium Bromide 10 MG/ML (10ML VIAL) ONE (12:30)
[2024-05-29] MEDS: Electrolyte Replacement Protocol 1 EACH FS ONE (13:48)
[2024-05-29] MEDS: Vancomycin 1 GM in Premix 1 BAG IVPB SCH (14:38)
[2024-05-29] MEDS: Cefepime 2 GM in Sodium Chloride 0.9% 100 ML IVPB SCH (20:22)
[2024-05-30 06:56] LABS: #Basophils 0.05 10x3/uL (0.0-0.2); %Basophils 0.5 % (0.0-1.0); %Eosinophils 2.1 % (0.0-10.0); %Lymphocytes 11.4 % (21.0-51.0); %Monocytes 11.7 % (0.0-10.0); Hemoglobin 8.5 g/dL (14.0-18.0); Mean Corpuscular HGB CONC 32.7 g/dL (32.0-36.0); Mean Corpuscular Hemoglobin 28.7 pg (27.0-31.0); Mean Corpuscular Volume 87.8 fL (78.0-98.0); Mean Platelet Volume 9.9 fL (7.4-10.4); Platelet Count 214 10x3/uL (130-400); RBC Distribution Width 13.7 % (11.5-14.5); Red Blood Cell (RBC) Count 2.96 mill/uL (4.70-6.10)
[2024-05-30 07:28] LABS: ALT (SGPT) 398 U/L (8-55); AST (SGOT) 140 U/L (5-34); Albumin 1.6 g/dL (3.5-5.0); Alkaline Phosphatase 291 U/L (40-110); Anion Gap 12 mmol/L (10-20); BUN (Urea Nitrogen) 29 mg/dL (8.9-20.6); Bilirubin, Total 0.9 mg/dL (0.2-1.2); Calc. Creatinine Clearance 53 mL/min (70-130); Calcium 7.9 mg/dL (7.8-10.44); Carbon Dioxide 25 mmol/L (22-29); Chloride 108 mmol/L (98-107); Estimated GFR 61; Globulin 4.4 g/dL (2.4-3.5); Glucose 190 mg/dL (70-105); Potassium 3.6 mmol/L (3.5-5.1); Sodium 141 mmol/L (136-145)
[2024-05-30] MEDS: Haloperidol Lactate 5 MG/ML VIAL IM SCH (23:37)
[2024-05-31] MEDS: Lactated Ringer's 500 ML IV SCH (01:09)
[2024-05-31 04:17] LABS: #Basophils 0.07 10x3/uL (0.0-0.2); %Basophils 0.7 % (0.0-1.0); %Eosinophils 3.2 % (0.0-10.0); %Lymphocytes 10.8 % (21.0-51.0); %Monocytes 12.2 % (0.0-10.0); %Neutrophils 72.5 % (42.0-75.0); Hematocrit 32.5 % (42.0-52.0); Hemoglobin 9.8 g/dL (14.0-18.0); Mean Corpuscular HGB CONC 30.2 g/dL (32.0-36.0); Mean Corpuscular Hemoglobin 28.3 pg (27.0-31.0); Mean Corpuscular Volume 93.9 fL (78.0-98.0); Mean Platelet Volume 10.5 fL (7.4-10.4); Platelet Count 185 10x3/uL (130-400); RBC Distribution Width 13.4 % (11.5-14.5); Red Blood Cell (RBC) Count 3.46 mill/uL (4.70-6.10)
[2024-05-31 04:45] LABS: Vancomycin, Random 24.2 ug/mL (See Comment)
[2024-05-31 04:47] LABS: ALT (SGPT) 286 U/L (8-55); Albumin 1.7 g/dL (3.5-5.0); Anion Gap 13 mmol/L (10-20); Calcium 8.3 mg/dL (7.8-10.44); Carbon Dioxide 20 mmol/L (22-29); Chloride 110 mmol/L (98-107); Globulin 5.3 g/dL (2.4-3.5); Glucose 116 mg/dL (70-105); Potassium 4.3 mmol/L (3.5-5.1); Sodium 139 mmol/L (136-145)
[2024-05-31 05:12] LABS: AST (SGOT) 59 U/L (5-34); Alkaline Phosphatase 302 U/L (40-110); BUN (Urea Nitrogen) 23 mg/dL (8.9-20.6); Bilirubin, Total 0.7 mg/dL (0.2-1.2); Calc. Creatinine Clearance 54 mL/min (70-130); Estimated GFR 63
[2024-05-31 07:16] LABS: Actual Bicarbonate (HCO3a) 24.8 mEq/L (22-28); Base Excess (BEa) 1.4 mEq/L (-2.0 to +3.0); CO2 Tension 34.5 mmHg (35.0-45.0); Calcium, Ionized (arterial) 1.15 mmol/L (1.12-1.30); Carboxyhemoglobin (COHb) 0.8 gm% (0.0-3.0); Hematocrit-ABG 26 % (42.0-52.0); Hemoglobin (Hb) 8.7 g/dL (14.0-18.0); O2 Tension (PaO2), arterial 73.3 mmHg (80.0-100.0); Potassium - ABG Lab 3.73 mmol/L (3.70-5.30); pH, Arterial 7.475 (7.35-7.45)
[2024-05-31 07:31] LABS: ALV-art Gradient 97.475 mmHg (0-20); Puncture Site Right Radial artery
[2024-05-31] MEDS: Sodium Chloride 0.9% 1,000 ML IV SCH (10:52)
[2024-05-31 11:00] VITALS: BMI 21.4
[2024-05-31] MEDS: Albumin 25% 25 GM (100 mL) BOT IVPB SCH (11:00)
[2024-05-31] MEDS: Lorazepam 2 MG/ML VIAL SLOW IVP PRN (11:47)
[2024-05-31 15:08] LABS: Cardiac Risk 4.3 (Less than 4.5)
[2024-05-31 16:38] LABS: Hemoglobin A1c 13.8 % (4.0-6.0)
[2024-06-01 04:38] LABS: ALT (SGPT) 129 U/L (8-55); AST (SGOT) 33 U/L (5-34); Albumin 2.6 g/dL (3.5-5.0); Alkaline Phosphatase 236 U/L (40-110); Anion Gap 13 mmol/L (10-20); BUN (Urea Nitrogen) 18 mg/dL (8.9-20.6); Bilirubin, Total 0.9 mg/dL (0.2-1.2); Calc. Creatinine Clearance 65 mL/min (70-130); Calcium 7.8 mg/dL (7.8-10.44); Carbon Dioxide 19 mmol/L (22-29); Chloride 112 mmol/L (98-107); Estimated GFR 72; Globulin 3.7 g/dL (2.4-3.5); Glucose 113 mg/dL (70-105); Potassium 4.1 mmol/L (3.5-5.1); Protein, Total 6.3 g/dL (6.0-8.3); Sodium 140 mmol/L (136-145)
[2024-06-01 05:18] LABS: #Basophils 0.06 10x3/uL (0.0-0.2); %Basophils 0.6 % (0.0-1.0); %Lymphocytes 10.6 % (21.0-51.0); %Monocytes 10.9 % (0.0-10.0); %Neutrophils 74.2 % (42.0-75.0); Hematocrit 23.3 % (42.0-52.0); Hemoglobin 7.6 g/dL (14.0-18.0); Mean Corpuscular HGB CONC 32.6 g/dL (32.0-36.0); Mean Corpuscular Hemoglobin 28.9 pg (27.0-31.0); Mean Corpuscular Volume 88.6 fL (78.0-98.0); Mean Platelet Volume 10.6 fL (7.4-10.4); Platelet Count 191 10x3/uL (130-400); RBC Distribution Width 13.3 % (11.5-14.5); Red Blood Cell (RBC) Count 2.63 mill/uL (4.70-6.10)
[2024-06-01 07:07] LABS: Actual Bicarbonate (HCO3a) 22.5 mEq/L (22-28); CO2 Tension 32.1 mmHg (35.0-45.0); Calcium, Ionized (arterial) 1.13 mmol/L (1.12-1.30); Carboxyhemoglobin (COHb) 0.7 gm% (0.0-3.0); Hematocrit-ABG 24 % (42.0-52.0); O2 Tension (PaO2), arterial 63.2 mmHg (80.0-100.0); pH, Arterial 7.463 (7.35-7.45)
[2024-06-01 07:21] LABS: ALV-art Gradient 110.575 mmHg (0-20); Puncture Site Right Radial artery
[2024-06-01] MEDS ORDERED: Morphine 4 MG/ML VIAL SLOW IVP PRN (13:01)
[2024-06-01 13:14] VITALS: TEMP 97.8
[2024-06-01 14:38] LABS: HCV RNA, log10 5.702 (.); Hep C PCR-Quant 504000 IU/mL (.)
== END 2024-06-01 14:05 | disposition expired | DRG 70 ==
LOC: ERS 19:36 → CCU 05-28 00:43
PROVIDERS: ADMIT Internal Medicine; ATTEND Internal Medicine
PROC: 4A033R1 Measurement of Arterial Saturation, Peripheral, Percutaneous Approach (ICD-10-PCS; 2024-05-27)
PROC: 30233N1 Transfusion of Nonautologous Red Blood Cells into Peripheral Vein, Percutaneous Approach (ICD-10-PCS; principal; 2024-05-28)
PROC: 5A1955Z Respiratory Ventilation, Greater than 96 Consecutive Hours (ICD-10-PCS; 2024-05-28)
PROC: 0DJ08ZZ Inspection of Upper Intestinal Tract, Via Natural or Artificial Opening Endoscopic (ICD-10-PCS; 2024-05-29)
PROC: 30233J1 Transfusion of Nonautologous Serum Albumin into Peripheral Vein, Percutaneous Approach (ICD-10-PCS; 2024-05-31)
DX: G93.41 Metabolic encephalopathy (principal); E43 Unspecified severe protein-calorie malnutrition; J96.01 Acute respiratory failure with hypoxia; I50.23 Acute on chronic systolic (congestive) heart failure; I63.9 Cerebral infarction, unspecified; N17.9 Acute kidney failure, unspecified; E87.20 Acidosis, unspecified; I42.9 Cardiomyopathy, unspecified; I13.0 Hypertensive heart and chronic kidney disease with heart failure and stage 1 through stage 4 chronic kidney disease, or unspecified chronic kidney disease; K92.2 Gastrointestinal hemorrhage, unspecified; Q24.0 Dextrocardia; Z51.5 Encounter for palliative care; F15.10 Other stimulant abuse, uncomplicated; E11.22 Type 2 diabetes mellitus with diabetic chronic kidney disease; Z66 Do not resuscitate; N18.9 Chronic kidney disease, unspecified; D63.1 Anemia in chronic kidney disease; E11.40 Type 2 diabetes mellitus with diabetic neuropathy, unspecified; F17.210 Nicotine dependence, cigarettes, uncomplicated; E11.43 Type 2 diabetes mellitus with diabetic autonomic (poly)neuropathy; K31.84 Gastroparesis; B19.20 Unspecified viral hepatitis C without hepatic coma; M54.12 Radiculopathy, cervical region; Z88.8 Allergy status to other drugs, medicaments and biological substances; Z89.432 Acquired absence of left foot; Z91.148 Patient's other noncompliance with medication regimen for other reason; Z68.20 Body mass index [BMI] 20.0-20.9, adult
CPT/HCPCS: 31500; 36415; 36416; 36430; 36600; 70450; 70553; 71045; 74018; 76705; 80053; 80061; 80074; 80202; 80306; 80307; 81001; 82010; 82140; 82274; 82550; 82728; 82805; 83036; 83540; 83550; 83605; 83690; 83735; 83880; 84100; 84443; 84484; 85025; 85610; 85730; 86141; 86850; 86900; 86901; 87040; 87077; 87086; 87149; 87522; 93005; 93306; 93880; 94002; 94003; 96365; 96366; 96367; 96368; 96375; 97139; 99292; A4217; J0692; J1630; J1815; J2060; J2354; J2470; J2704; J3010; J3370; J3475; J3480; J7030; J7050; J7120; J7999; P9016; P9047